=== PATIENT | female | born 2000 | race Caucasian/White ===

== ENCOUNTER 2023-10-12 10:00 | Outpatient (RCR) | payer OTHER, SELFPAY ==
[2023-10-05 13:31] VITALS: BP 112/71; RESP 16; TEMP 36.6; O2SAT 98
[2023-10-05] MEDS: ACETAMINOPHEN 325 MG TABLET 650 MG PO (13:42)
[2023-10-05] MEDS: diphenhydrAMINE HCl INJ 50 MG/ML VIAL 25 MG IV PUSH (13:43)
[2023-10-05] MEDS: IRON SUCROSE COMPLEX 200 MG in SODIUM CHLORIDE 0.9% IV 100 ML 440 MG IVPB (13:50)
[2023-10-05 14:22] VITALS: BMI 32.4
[2023-10-05 14:41] VITALS: BP 124/74
[2023-10-08 09:07] VITALS: BP 121/86; PULSE 105; TEMP 37.1; O2SAT 100
[2023-10-08] MEDS: diphenhydrAMINE HCl INJ 50 MG/ML VIAL 25 MG IV PUSH (09:23)
[2023-10-08] MEDS: ACETAMINOPHEN 325 MG TABLET 650 MG PO (09:23)
[2023-10-08] MEDS: IRON SUCROSE COMPLEX 200 MG in SODIUM CHLORIDE 0.9% IV 100 ML 440 MG IVPB (09:37)
[2023-10-08 10:30] VITALS: BP 111/75; PULSE 97
[2023-10-12 10:19] VITALS: BP 117/77; RESP 100; TEMP 36.9
[2023-10-12] MEDS: diphenhydrAMINE HCl INJ 50 MG/ML VIAL 25 MG IV PUSH (10:48)
[2023-10-12] MEDS: ACETAMINOPHEN 325 MG TABLET 650 MG PO (10:48)
[2023-10-12] MEDS: IRON SUCROSE COMPLEX 200 MG in SODIUM CHLORIDE 0.9% IV 100 ML 440 MG IVPB (11:04)
[2023-10-12 11:53] VITALS: BP 120/61
== END 2023-10-15 13:47 ==
LOC: AMCINF 10:00
PROVIDERS: Referring Provider Obstetrics & Gynecology; Visit Provider Internal Medicine Hematology & Oncology
DX: O99.013 Anemia complicating pregnancy, third trimester (principal); D64.9 Anemia, unspecified; Z3A.00 Weeks of gestation of pregnancy not specified
CPT/HCPCS: 96365; 96375; A9270; J1200; J1756

== ENCOUNTER 2024-11-01 14:52 | Outpatient (CLI) | payer OTHER, SELFPAY ==
--- NOTE | ~2024-11-01 | XR_ITS ---
3 VIEWS THORACIC SPINE Ordering provider: Hesham Meehan APRN History: . Hx of scoliosis, Pain worse past year since /labor . Comparison: None. FINDINGS: VERTEBRAL BODIES: Normal height and alignment. No visible fracture or subluxation. Mild dextroscoliosis. DISK SPACES: Multilevel degenerative disc disease in the upper thoracic area. SOFT TISSUES: Normal. IMPRESSION: No acute osseous abnormality of the thoracic spine. Dextroscoliosis. Multilevel degenerative disc disease. Reviewed, dictated and finalized at location A.
--- NOTE | ~2024-11-01 | XR_ITS ---
[id number] Ordering provider: Hesham Meehan APRN History: . Hx of scoliosis, Pain worse past year since /labor . Comparison: December 28, 2008 Technique: CT of the cervical spine was performed without contrast. Sagittal and coronal reformatted images were also obtained and reviewed. Automated exposure control and iterative reconstruction gabe hnique were employed. The dose-length product was mGy-cm. FINDINGS: VERTEBRAE: Minimal subluxation at the level of C2-C3. Otherwise, No subluxation or acute fracture. Th e occipital condyles are intact. DISC SPACES: Normal. PARASPINOUS SOFT TISSUES: Normal. IMPRESSION: Minimal anterolisthesis at the level of C2-C3. Otherwise, No acute osseous abnormality cervical spine . Reviewed, dictated and finalized at location A. IMPRESSION: Minimal anterolisthesis at the level of C2-C3. Otherwise, No acute osseous abno rmality cervical spine.
--- NOTE | ~2024-11-01 | XR_ITS ---
3 VIEWS LUMBAR SPINE Ordering provider: Hesham Meehan APRN History: . Hx of scoliosis, Pain worse past year since /labor . Comparison: None. FINDINGS: VERTEBRAL BODIES: No visible fracture or subluxation. 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 DISK SPACES: Narrowing of the disc L5-S1. SOFT TISSUES: Normal. IMPRESSION: No acute osseous abnormality lumbar spine. Degenerative disc disease at the level of L5-S1. Reviewed, dictated and finalized at location A.
--- OUTSIDE RECORDS SUMMARY | 2024-11-01 15:02 | XMS_ITS | Data Portability ---
Author Organization [facility] [place] Address [address] [address] [address] [place] [address] Assessment Encounter Date Assessment Date Assessment LastModified by Organization Details LastModified Time 09/15/2023 09/15/2023 Patient is _34__weeks . Discussed plan. Not available 09/15/2023 15:35:24 11/12/2023 11/12/2023 start slynd, discussed se risks and benefits, f/u 6 month wwe Not available 11/12/2023 14:20:23 Plan of Treatment Reminders Order Date Submit Date Provider Last Modified By Organization Details Last Modified Time Details Appointments None recorded . Lab CBC w/ auto diff 024 09/28/19 24 [facility] (Lab), [address], [place], [address], 4 03:11:08 iron + TIBC + ferritin , serum 024 09/28/19 24 [facility] (Lab), [address], [place], [address], 4 03:11:09 Referral None recorded . Procedures None recorded . Surgeries None recorded . Imaging US, obstetri c, follow-u p 024 09/01/19 24 [email or web address] [place], [address], [address], [place], [address], 4 16:52:45 Medication Orders Slynd 4 mg (28) tablet 024 11/12/[address] [id number], [address] [place], [place], [id number], 14:21:20 Patient TargetsNo targets recorded. Patient InstructionsNo instructions recorded. Reason for Referral None Reported. Results Created Date Observation Date Name Description Value Unit Range Abnormal Flag Note LastModifiedBy Organization Detail LastModifiedTime 08/04/1908/04/2023 HEMAT OCRIT (HCT) HCT 30.0 % (based on docume nted legal sex) 34.0-4 5.0 low Not Available [facility] (Lab) [address], [place], [address], 08/05/2023 01:48:57 08/04/19 24 08/04/2023 HEMOG LOBIN (HGB) HGB 10.2 g/dL (based on docume nted legal sex) 11.6-1 5.4 low Not Available [facility] (Lab) [address], [place], [address], 08/05/2023 01:48:57 08/04/19 24 08/04/2023 GTT - GESTA CAMRYN L SCREE N, ACOG OB glucose, 1 hour screen 94 mg/dL 70-135 Not Available [facility] (Lab) [address] [place], [address], 08/05/2023 01:48:58 08/04/1908/04/2023 HIV 1/2 ANTIG EN/AN TIBOD Y, REFLE X CONFI RMATI ON HIV antigen/anti body Nonrea ctive nonrea ctive HIV-1 antig en and HIV-1 /HIV- 2 antib odies were not detec anil. No labor atory evide nce of HIV infec tion. Not Available [facility] (Lab) [address], [place], [address], 08/05/2023 01:48:58 09/28/19 24 09/28/2023 CBC W/DIF F WBC 10.3 10'3/ uL 3.5-10 .5 Not Available [facility] (Lab) [address] , [place], [address], 09/29/2023 03:11:08 09/28/19 24 09/28/2023 CBC W/DIF F RBC 3.57 10'6/ uL (based on docume nted legal sex) 3.80-5 .20 low Not Available [facility] (Lab) [address], [place], [address], 09/29/2023 03:11:08 09/28/19 24 09/28/2023 CBC W/DIF F HGB 9.7 g/dL (based on docume nted legal sex) 11.6-1 5.4 low Not Available [facility] (Lab) [address], [place], [address], 09/29/2023 03:11:08 09/28/19 24 09/28/2023 CBC W/DIF F HCT 30.7 % (based on docume nted legal sex) 34.0-4 5.0 low Not Available [facility] (Lab) [address], [place], [address], 09/29/2023 03:11:08 09/28/19 24 09/28/2023 CBC W/DIF F MCV 86.0 fL 80.0-9 9.0 Not Available [facility] (Lab) [address] , [place], [address], 09/29/2023 03:11:08 09/28/19 24 09/28/2023 CBC W/DIF F MCH 27.2 pg 27.0-3 4.0 Not Available [facility] (Lab) [address], [place], [address], 09/29/2023 03:11:08 09/28/19 24 09/28/2023 CBC W/DIF F MCHC 31.6 g/dL 32.0-3 5.5 low Not Available [facility] (Lab) [address], [place], [address], 09/29/2023 03:11:08 09/28/19 24 09/28/2023 CBC W/DIF F RDW 14.5 % 11.0-1 5.0 Not Available [facility] (Lab) [address], [place], [address], 09/29/2023 03:11:08 09/28/19 24 09/28/2023 CBC W/DIF F plt 272 10'3/ uL 150-40 0 Not Available [facility] (Lab) [address], [place], [address], 09/29/2023 03:11:08 09/28/19 24 09/28/2023 CBC W/DIF F MPV 10.3 fL 8.8-12 .1 Not Available [facility] (Lab) [address], [place], [address], 09/29/2023 03:11:08 09/28/19 24 09/28/2023 CBC W/DIF F NRBC's 0.0 % 0.0 Not Available [facility] (Lab) [address], [place], [address], 09/29/2023 03:11:08 09/28/19 24 09/28/2023 CBC W/DIF F absolute NRBCs 0.0 10'3/ uL no refere nce range establ ished Not Available [facility] (Lab) [address], [place], [address], 09/29/2023 03:11:08 09/28/19 24 09/28/2023 CBC W/DIF F neutrophils 76.2 % 34.0-7 3.0 high Not Available [facility] (Lab) [address], [place], [address], 09/29/2023 03:11:08 09/28/19 24 09/28/2023 CBC W/DIF F lymphocytes 17.2 % 15.0-5 0.0 Not Available [facility] (Lab) [address], [place], [address], 09/29/2023 03:11:08 09/28/19 24 09/28/2023 CBC W/DIF F monocytes 4.6 % 1.0-15 .0 Not Available [facility] (Lab) [address], [place], [address], 09/29/2023 03:11:08 09/28/19 24 09/28/2023 CBC W/DIF F eosinophils 1.1 % 0.0-8. 0 Not Available [facility] (Lab) [address], [place], [address], 09/29/2023 03:11:08 09/28/19 24 09/28/2023 CBC W/DIF F basophils 0.2 % 0.0-2. 0 Not Available [facility] (Lab) [address], [place], [address], 09/29/2023 03:11:08 09/28/19 24 09/28/2023 CBC W/DIF F immature granulocytes 0.7 % no define d refere nce range Not Available [facility] (Lab) [address], [place], [address], 09/29/2023 03:11:08 09/28/19 24 09/28/2023 CBC W/DIF F absolute neutrophils 7.9 10'3/ uL 1.5-8. 0 Not Available [facility] (Lab) [address] [place], [address], 09/29/2023 03:11:08 09/28/19 24 09/28/2023 CBC W/DIF F absolute lymphocytes 1.8 10'3/ uL 1.0-4. 0 Not Available [facility] (Lab) [address] [place], [address], 09/29/2023 03:11:08 09/28/19 24 09/28/2023 CBC W/DIF F absolute monocytes 0.5 10'3/ uL 0.2-1. 0 Not Available [facility] (Lab) [address], [place], [address], 09/29/2023 03:11:08 09/28/19 24 09/28/2023 CBC W/DIF F absolute eosinophils 0.1 10'3/ uL 0.0-0. 6 Not Available [facility] (Lab) [address], [place], [address], 09/29/2023 03:11:08 09/28/19 24 09/28/2023 CBC W/DIF F absolute basophils 0.0 10'3/ uL 0.0-0. 3 Not Available [facility] (Lab) [address], [place], [address], 09/29/2023 03:11:08 09/28/19 24 09/28/2023 CBC W/DIF F absolute immature granulocytes 0.1 10'3/ uL 0.00-0 .10 024 1:44 AM: P indic ates parti al resul ts on a panel have been relea sed. Addit ional resul ts will follo w. 024 1:44 AM: This resul t has been final verif ied. No addit ional or costello ed resul ts are expec anil. Not Available [facility] (Lab) [address], [place], [address], 09/29/2023 03:11:08 09/28/19 24 09/28/2023 CM TIN / IRON / TRANS CM N / TIBC iron 33 ug/dL 40-170 low Not Available [facility] (Lab) [address], [place], [address], 09/29/2023 03:11:09 09/28/19 24 09/28/2023 CM TIN / IRON / TRANS CM N / TIBC transferrin 602 mg/dL 200-36 0 high Not Available [facility] (Lab) [address], [place], [address], 09/29/2023 03:11:09 09/28/19 24 09/28/2023 CM TIN / IRON / TRANS CM N / TIBC ferritin 8.6 NG/mL 8.0-25 2.0 Not Available [facility] (Lab) [address] [place], [address], 09/29/2023 03:11:09 09/28/19 24 09/28/2023 CM TIN / IRON / TRANS CM N / TIBC TIBC 843 ug/dL 250-45 0 high Not Available [facility] (Lab) [address], [place], [address], 09/29/2023 03:11:09 09/28/19 24 09/28/2023 CM TIN / IRON / TRANS CM N / TIBC iron saturation 4 % 20-55 low Not Available [facility] (Lab) [address] [place], [address], 09/29/2023 03:11:09 09/28/19 24 09/28/2023 CULTU RE: GROUP B STREP SCREE N result report SEE RESULT S BELOW Test: Cultu re: Group B Strep Scree n - Vagin al/Re ctal Speci men Sourc e: Vagin a/Rec louis Speci men Type: Vagin al/Re ctal Speci men Date: 2023 4:02 PM Resul t Date: 024 3:11 PM Resul t Statu s: Final resul t Abnor mal: No Resul ting Lab: [facility] [address] [facility] [address] Tel: CULTU RE ----- ----- ----- --- No Group B strep isola anil at 2 days (maya ctive broth enhan cemen t) Not Available [facility] (Lab) [address] [place], [address], 10/01/2023 16:14:33 09/01/19 24 09/01/2023 US, obste tric, follo w-up No observ ation record ed. [facility] [address], [place], [address], 09/01/2023 13:55:17 09/01/19 24 09/01/2023 US, obste tric, follo w-up No observ ation record ed. [facility] [address], [place], [address], 09/02/2023 15:01:30 Result Notes None recorded. Problems Name Problem SNOMED Code Status Onset Date Resolution Date Notes Provider Name and Address Organization Details Recorded Time Pregnanc y 05616931 Completed 202210/15/2023 [facility] 4 14:10:14 Dilatati on of renal pelvis 629885769 Completed 4.9mm at 24 weeks, repeat at 32 weeks-res olved [facility] 4 14:10:11 Anemia 085606595 Completed Anemia panel / IV iron infusion - referral faxed 09/28 [facility] 4 14:10:11 Problem Notes None recorded. Procedures Surgical History Date Name Laterality Status Provider Name and Address Organization Details Recorded Time 05/31/19 04 procedure on labia completed [facility] 02/22/2023 15:55:05 05/31/19 03 Tonsillectomy completed [facility] 02/22/2023 15:54:22 Imaging Results None recorded. Procedure Notes None recorded. Medical Equipment None Reported. Allergies No known drug allergies Medications Name Sig Start Date Stop Date Status Note LastModified by Organization Details LastModified Time clindamycin HCl 300 mg capsule TAKE 1 CAPSULE BY MOUTH EVERY 8 HOURS 04/12 completed Not Available Not Available Not Available triamcinolo ne acetonide 0.5 % topical cream APPLY TOPICALLY TO THE AFFECTED AREA TWICE DAILY FOR 5 DAYS 04/12 completed Not Available Not Available Not Available cetirizine 10 mg tablet TAKE 1 TABLET BY MOUTH DAILY NEEDED 11/11 completed Not Available Not Available Not Available ondansetron HCl 4 mg tablet TAKE 1 TABLET BY MOUTH EVERY 4 TO 6 HOURS 11/11 completed Not Available Not Available Not Available hydroxyzine pamoate 50 mg capsule TAKE 1 CAPSULE BY MOUTH EVERY NIGHT AT BEDTIME NEEDED 04/12 completed Not Available Not Available Not Available dextroamphe tamine-amph etamine 30 mg tablet TAKE 1 TABLET BY MOUTH EVERY MORNING 06/08 completed Not Available Not Available Not Available benzonatate 100 mg capsule TAKE 1 CAPSULE BY MOUTH EVERY 8 HOURS NEEDED 04/12 completed Not Available Not Available Not Available epinephrine 0.3 mg/0.3 mL injection, auto-inject or active Not Available Not Available Not Available ibuprofen 600 mg tablet TAKE 1 TABLET BY MOUTH EVERY 6 HOURS NEEDED FOR CRAMPING 11/11 completed Not Available Not Available Not Available escitalopra m 10 mg tablet TAKE 1 TABLET BY MOUTH EVERY DAY 04/12 completed Not Available Not Available Not Available active Not Available Not Avai lable Not Available Slynd 4 mg (28) tablet Take 1 tablet every day by oral route. active Not Available Not Available No t Available Vitals Date Recorded Body height Body mass index (BMI) Body weight Systolic blood pressure Diastolic blood pressure Provider Name and Address Organization Details Last Updated DateTime 09/01/2023 161.29 cm 30.5 kg/m2 60902.66 475 g 129 mm[Hg] 82 mm[Hg] Tracie De La Garza [facility] 4 13:07:24 Date Recorded Body height Body mass index (BMI) Body weight Systolic blood pressure Diastolic blood pressure Provider Name and Address Organization Details Last Updated DateTime 09/15/2023 161.29 cm 30.9 kg/m2 46122.84 949 g 129 mm[Hg] 84 mm[Hg] Tracie De La Garza [facility] 15:25:39 Date Recorded Body weight Provider Name an d Address Organization Details Last Updated DateTime 09/28/2023 [id number] Emily Lewis [address], [place], [address], [facility] 09/28/2023 14:49:52 Date Recorded Body height Body mass index (BMI) Systolic blood pressure Diastolic blood pressure Provider Name and Address Organization Details Last Updated DateTime 09/28/2023 161.29 cm 32 kg/m2 132 mm[Hg] 79 mm[Hg] [facility] 09/28/2023 14:27:14 Date Recorded Body weight Provider Name an d Address Organization Details Last Updated DateTime 10/12/2023 [id number] Emily Lewis [address], [place], [address], [facility] 10/15/2023 13:50:59 Date Recorded Body height Body mass index (BMI) Systolic blood pressure Diastolic blood pressure Provider Name and Address Organization Details Last Updated DateTime 10/12/2023 161.29 cm 32.2 kg/m2 126 mm[Hg] 84 mm[Hg] [facility] 10/12/2023 15:42:32 Date Recorded Body height Body mass index (BMI) Body weight Systolic blood pressure Diastolic blood pressure Provider Name and Address Organization Details Last Updated DateTime 11/12/2023 161.29 cm 26.3 kg/m2 02860.45 g 117 mm[Hg] 81 mm[Hg] Tracie De La Garza [facility] 14:06:42 Social History Question Answer Notes LastModified by Organizat ion Details LastModified Time Tobacco Smoking Status Never Smoker Claudia Luis sara, [facility] 06/08/2023 13:51:01 If You Are , What Was Your Level Of Alcohol Consumption Prior To ? None Information not available 06/08/2023 Are You Blind Or Do You Have Difficulty Seeing? No Information n ot available 02/22/2023 What Is Your Level Of Caffeine Consumption? Occasional Information not available 02/22/2023 In The 14 Days Before Symptom Onset, Have You Had Close Contact With A Laboratory-confirm ed COVID-19 While That Case Was Ill? No Information n ot available 02/22/2023 In The 14 Days Before Symptom Onset, Have You Had Close Contact With A Person Who Is Under Investigation For COVID-19 While That Person Was Ill? No Information not available 02/22/2023 Have You Been To An Area Known To Be High Risk For COVID-19? No Information not available 02/22/2023 Are You Deaf Or Do You Have Serious Difficulty Hearing? No Information not available 02/22/2023 What Type Of Diet Are You Following? REGULAR Information n ot available 02/22/2023 What Is The Highest Grade Or Level Of School You Have Completed Or The Highest Degree You Have Received? [id number] Information not available 02/22/2023 Are There Any Guns Present In Your Home? No Information not available 02/22/2023 Do You Use Protection During Sex? Usually Information not available 02/22/2023 Do You Use Your Seat Belt Or Car Seat Routinely? Yes Information not available 02/22/2023 Do You Have Smoke And Carbon Monoxide Detectors In Your Home? Yes Information not available 02/22/2023 How Much Tobacco Do You Smoke? No Information not available 02/22/2023 Do You Use Sunscreen Routinely? Yes Information not available 02/22/2023 Have You Used IV Drugs? No Information not available 02/22/2023 Do You Have Difficulty Walking Or Climbing Stairs? No [email or web address] Information not available 09/01/2023 Sex: Unknown Functional Status Question Answer Note LastModified by Organizat ion Details LastModified Time Do you use any illicit or recreational drugs? No Information not available 02/22/2023 Do you or have you ever used any other forms of tobacco or nicotine? No [email or web address] Information not available 06/08/2023 What is your level of alcohol consumption? None Information not available 02/22/2023 Are you able to walk? YESWOREST Information not available 02/22/2023 Are you able to care for yourself? 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 No [email or web address] Information not available 09/01/2023 What is your exercise level? Heavy Information not available 02/22/2023 Mental Status Question Answer Note LastModified by Organization D etails LastModified Time Do you feel stressed (tense, restless, nervous, or anxious, or unable to sleep at night)? [id number] Information not available 02/22/2023 Family History Relationship Description Onset Age of this Age Resolved Age Notes LastModified by Organization Details LastModified Time Father No current problems or disability [email or web address] Not available 02/22 15:47:15 Mother No current problems or disability [email or web address] Not available 02/22 15:47:15 Medical History Condition Response Allergies (Food, seasonal, environmental ) N Other N Blood Transfusion N Drug/Latex Allergies/Reactions N Breast Cancer N Dermatologic Disorders N Lung Disease N Defects or Inherited Disease N Breast Problem N Gestational Diabetes N Hematologic disorders N Anesthesia Complications N History of STI N Deep Vein Thrombosis N Polycystic ovary syndrome N Anxiety Disorder N Autoimmune disease N Arthritis N Infertility N Polyps N Acid Reflux (GERD) N History of abnormal pap N Cancer N Stroke N Varicosities N Neurologic/Epilepsy N Endometriosis N High Cholesterol N Headaches N Fibromyalgia N Kidney Disease N Heart Problems N Kidney or Bladder Problems N Thyroid Problems N GI Problems N Eating Disorder N Anemia N Art (IVF or FET) N Psychiatric Illness N Ovarian Cancer N Diabetes N Pulmonary (TB, Asthma) N Hepatitis/Liver Disease N No Past Medical History Y Eczema N Urinary Tract Infection N Abuse/Domestic Violence N Asthma N Trauma/Violence N Depression/ depression N Heart Disease N Pre-Eclampsia N Hypertension N Osteoporosis N Thrombophilias N Gynecological History Statement/Question Response Date of Last Mammogram Date of LMP 12/17/2022 N Was last menstrual period normal Y STIs/STDs N HPV Vaccine Y Duration of Flow (days) 6 Current Control Method None Sexually Active? Y Date of DEXA bone scan Age of first menstrual cycle 15 Date of Last Pap Smear Sexual Problems? N Desired Control Method None LMP Approximate N Obstetrics History GPAL:G 1 P 1 0 0 1 Type Value Full Term 1 Living 1 Total 1 Past Encounters Encounter ID Performer Location Encounter Start Date Encounter Closed Date Diagnosis/Indication Diagnosis SNOMED-CT Code Diagnosis ICD10 Code Diagnosis Note [id number] MD [place] [address] [address] 02/22/2023 15:02:05 02/22/2023 15:41:10 Uterine size for dates discrepancy 728983048 O26.841 Z3A.01 [id number] JENNIFER PINA MD [place] [address],[place] [address] 02/22/2023 15:02:49 02/22/2023 16:29:21 test positive 862764668 Z32.01 1. Exam today within normal limits.2. Will repeat U/S in 2 weeks to confirm gestationa l age and verify viability. 3. ACOG guidelines and plan of care for reviewed with patient. All questions answered.7 . Return to office in 6 weeks for continued OB care (2 weeks for repeat ultrasound )8. Will need new OB labs at next visit.9. Genetic screening: undecided, will discuss at next visit [id number] JENNIFER PINA MD [place] [address],[place] [address] 03/11/2023 15:17:29 03/11/2023 16:24:42 screening 967990102 Z36.87 [id number] MD Ilia HERNANDE[facility] [address],[place] [address] 04/08/2023 10:59:15 04/08/2023 12:04:21 screening 473640538 Z36.82 Z3A.12 [id number] MD Ilia HERNANDE[facility] [address] [address] 04/12/2023 12:18:17 04/12/2023 13:42:33 Routine care 835540089 Z34.01 [id number] JENNIFER PINA MD [place] [address],[place] [address] 05/10/2023 11:57:39 05/20/2023 10:18:29 Routine care 450115085 Z34.01 [id number] Chito Levin MD [place] [address],[place] [address] 06/08/2023 13:50:52 06/08/2023 14:55:26 screening for malformation 583782581 Z36.3 Z3A.20 [id number] JENNIFER PINA MD [place] [address],[place] [address] 06/08/2023 13:51:15 06/08/2023 15:17:02 Routine care 517947454 Z34.01 [id number] Chito Levin MD [place] [address],[place] [address] 07/07/2023 14:13:55 07/07/2023 14:59:35 Suspected abnormality affecting management of mother 9063957291 [id number] O35.8XX0 Z36.2 Z3A.24 [id number] MD Ilia HERNANDE[place] [address] [address] 07/07/2023 14:15:24 07/07/2023 15:25:10 Dilatation of renal pelvis 373551708 O36.8999 Gestation period, 24 weeks 823835608 Z3A.24 [id number] JENNIFER PINA MD [place] [address] [address] 08/04/2023 15:50:03 08/04/2023 17:01:15 Dilatation of renal pelvis 791151105 O36.8999 Gestation period, 28 weeks 41935093 Z3A.28 [id number] MD Ilia HERNAN[place] [address],[place] [address] 08/17/2023 11:47:11 08/19/2023 13:36:27 Dilatation of renal pelvis 273269678 O36.8999 Gestation period, 30 weeks 38519691 Z3A.30 [id number] Chito Levin MD [place] [address],[place] [address] 09/01/2023 12:28:46 09/01/2023 13:30:02 condition affecting obstetrical care of mother 529155701 O35.8XX0 Z3A.32 [id number] Shasta Chauhan [facility] [address],[place] [address] 09/01/2023 12:29:12 09/01/2023 13:32:51 Routine care 846124070 Z34.83 [id number] [facility] [address],[place] [address] 09/15/2023 15:12:05 09/15/2023 15:37:20 Routine care 532244005 Z34.83 [id number] JENNIFER PINA MD [place] [address],[place] [address] 09/28/2023 14:11:38 09/28/2023 15:03:55 Anemia of 51501865 O99.019 Gestation period, 36 weeks 87590716 Z3A.36 [id number] JENNIFER PINA MD [place] [address],[place] [address] 10/12/2023 15:19:54 10/16/2023 02:21:03 Anemia of 24612039 O99.019 Gestation period, 38 weeks 14547125 Z3A.38 [id number] Shasta Chauhan [facility] [address],[place] [address] 11/12/2023 13:59:35 11/12/2023 14:22:14 care 856241738 Z39.2 Health Concerns Section Related Observation LastModified by Organization Detai ls LastModified Time None Recorded Concern Status LastModified by Organization Details LastModified Time None Recorded Advance Directives Directive None Recorded Payers Encounter Date Sequence Insurance Name Policy Number Policy Ferguson Covered Member ID Ferguson Member ID Guarantor Name 09/01/2023 1 [facility] ON OR AFTER 11/28/20 (MEDICAID REPLACEMENT - HMO) Suki Gongora [id number] Suki Gongora 09/15/2023 1 [facility] ON OR AFTER 11/28/20 (MEDICAID REPLACEMENT - HMO) Suki Fransisca [id number] Suki Fransisca 09/28/2023 1 [facility] ON OR AFTER 11/28/20 (MEDICAID REPLACEMENT - HMO) Suki Fransisca [id number] Suki Hammadjanes 10/12/2023 1 [facility] ON OR AFTER 11/28/20 (MEDICAID REPLACEMENT - HMO) Suki Gongora [id number] Suki Fransisca 11/12/2023 1 [facility] ON OR AFTER 11/28/20 (MEDICAID REPLACEMENT - HMO) Suki Gongora [id number] Suki Gongora Notes Date Note Type Note Provider Name and Address Organization Details Recorded Time 11/12/2023 text/html VisitReported bypatient.Quality:N Context:complicatio ns of : none; complications of labor: arrest of descent; complications: none; feeding choice: breast; good support from partner/family; resumed menstrual bleeding no; kiwi vacuum delivery Associated Symptoms:no abnormal bleeding; no vaginal discharge; no pelvic pain; laceration well healed; no constipation; no fecal incontinence; no dysuria; no urinary incontinence; no fever; no problems; no mastitis; normal mood Contraception Plan:progesterone only pillNotes:doing great!! Tracie De La Garza [facility] 11/13/2023 12:29:47 OBGyn Episode Ob Episode Information Episode Created Date Number of Fetuses Patient Bloodtype Patient rh Status Prepregnancy Weight lbs Domestic Partner Domestic Partner Phone Father Name Clothing Busheler Status 04/12/20 23 1 A Positive 134.6 CLOSED Fetus Data First Name Last Name Admitted to NICU Weight (g) Sex Living Outcome Pediatric Complications Fetus ID Race Codes Race Delivery Type [id number] [id number] F true Full Term [id number] Vacuum Assisted Vaginal Delivery Problems Problem Notes Problem Name Start Date End Date Resolution Snomed Code Not e Dilatation of renal pelvis [id number] 4.9mm at 24 wee ks, repeat at 32 weeks-resolved Anemia [id number] Anemia gallego el / IV iron infusion - referral faxed 09/28 Aleksandr Calculation Initial Aleksandr Date Initial Exam Date Initial Exam Provider Initial Ultrasound Date Last Menstrual Period Date Ultra Sound Weeks Gestation 10/23/2023 04/12/2023 03/11/2023 12/17/2022 7 Eighteen To Twenty Week Aleksandr Update Ultra Sound Date Fundal Height At Umbil Quickening Date Ultra Sound Latest Weeks Gestation Final Aleksandr Confirmed By Final Aleksandr Confirmed Date Final Aleksandr Date Ultra Sound Latest Days Gestation 0 [email or web address] 04/12/2023 10/23/19 24 0 Pre-zi Flowsheet Flowsheet Date 04/12/2023 Potter Score Blood Edema Fundus Height Fundus Units Glucose Ketones Leukocytes Nitrite Labor Signs Protein Cervic Dilation Cervic Effacement Cervic Station 12 Type Weight in lbs Pre/Post Dialysis Refused Weight 141.694267012132 BP Diastolic BP Location Tested BP Systolic BP Type 75 124 Fetus Heart Rate Present A 140 Fetus Movement Comments Presents to establish prenat al care. uncomplicated thus far. Nausea improved with zofran. Denies cramping or bleeding. Declined NIPT. Discussed routine care. PMH/PSH noncontributory. Will begin routine care. Flowsheet Date 05/10/2023 Potter Score Blood Edema Fundus Height Fundus Units Glucose Ketones Leukocytes Nitrite Labor Signs Protein Cervic Dilation Cervic Effacement Cervic Station 16 Type Weight in lbs Pre/Post Dialysis Refused Weight 144.396813541470 BP Diastolic BP Location Tested BP Systolic BP Type 73 122 Fetus Heart Rate Present A 140 Fetus Movement Comments Doing well, no issues since last visit. no cramping, bleeding, LOF. No movement yet. Anatomy next visit. Routine cares. Flowsheet Date 06/08/2023 Potter Score Blood Edema Fundus Height Fundus Units Glucose Ketones Leukocytes Nitrite Labor Signs Protein Cervic Dilation Cervic Effacement Cervic Station Type Weight in lbs Pre/Post Dialysis Refused BP Diastolic BP Location Tested BP Systolic BP Type Fetus Heart Rate Present Fetus Movement Comments Flowsheet Date 06/08/2023 Potter Score Blood Edema Fundus Height Fundus Units Glucose Ketones Leukocytes Nitrite Labor Signs Protein Cervic Dilation Cervic Effacement Cervic Station Type Weight in lbs Pre/Post Dialysis Refused Weight 150.022320142411 BP Diastolic BP Location Tested BP Systolic BP Type 73 115 Fetus Heart Rate Present A 137 Fetus Movement A Yes Comments Doing well, no cramping, ble eding. Good movement. Anatomy complete and normal today, EFW 47%. Girl! Very mild unilateral pyelectasis, will repeat US in 4 weeks to reevaluate. Flowsheet Date 07/07/2023 Potter Score Blood Edema Fundus Height Fundus Units Glucose Ketones Leukocytes Nitrite Labor Signs Protein Cervic Dilation Cervic Effacement Cervic Station Type Weight in lbs Pre/Post Dialysis Refused BP Diastolic BP Location Tested BP Systolic BP Type Fetus Heart Rate Present Fetus Movement Comments Flowsheet Date 07/07/2023 Potter Score Blood Edema Fundus Height Fundus Units Glucose Ketones Leukocytes Nitrite Labor Signs Protein Cervic Dilation Cervic Effacement Cervic Station Type Weight in lbs Pre/Post Dialysis Refused Weight 159.899965289402 BP Diastolic BP Location Tested BP Systolic BP Type 76 128 Fetus Heart Rate Present A 141 Fetus Movement A Yes Comments Doing well, good movem ent. No cramping or bleeding. Growth US today 49%, R pyelectasis stable. Will repeat at 32 weeks. RTC 4 weeks for GCT and labs. Flowsheet Date 08/04/2023 Potter Score Blood Edema Fundus Height Fundus Units Glucose Ketones Leukocytes Nitrite Labor Signs Protein Cervic Dilation Cervic Effacement Cervic Station Type Weight in lbs Pre/Post Dialysis Refused Weight 168.804501895171 BP Diastolic BP Location Tested BP Systolic BP Type 78 129 Fetus Heart Rate Present A 135 Fetus Movement A Yes Comments Doing well, no ctx LOF VB. B macie active. No problems since last visit. Discussed Tdap vaccine. GCT and labs today. RTC 2 weeks. Flowsheet Date 08/17/2023 Potter Score Blood Edema Fundus Height Fundus Units Glucose Ketones Leukocytes Nitrite Labor Signs Protein Cervic Dilation Cervic Effacement Cervic Station Type Weight in lbs Pre/Post Dialysis Refused Weight 168.202051407932 BP Diastolic BP Location Tested BP Systolic BP Type 76 117 Fetus Heart Rate Present A 145 Fetus Movement A Yes Comments Doing well, good movem ent. No cramping or bleeding. Recieved Tdap. Changed prenatals to formula with Fe. Will recheck H/h at 34 weeks. Repeat US next visit for renal pyelectasis. RTC 2 weeks. Flowsheet Date 09/01/2023 Potter Score Blood Edema Fundus Height Fundus Units Glucose Ketones Leukocytes Nitrite Labor Signs Protein Cervic Dilation Cervic Effacement Cervic Station Type Weight in lbs Pre/Post Dialysis Refused BP Diastolic BP Location Tested BP Systolic BP Type Fetus Heart Rate Present Fetus Movement Comments Flowsheet Date 09/01/2023 Potter Score Blood Edema Fundus Height Fundus Units Glucose Ketones Leukocytes Nitrite Labor Signs Protein Cervic Dilation Cervic Effacement Cervic Station neg trace none trace Type Weight in lbs Pre/Post Dialysis Refused Weight 175.462811896395 BP Diastolic BP Location Tested BP Systolic BP Type 82 129 Fetus Heart Rate Present Fetus Movement A Yes Comments patient states that having s ome swelling. doing well, reviewed us, reviewed precautions and education, call for preadmit, f/u in 2 weeks Flowsheet Date 09/15/2023 Potter Score Blood Edema Fundus Height Fundus Units Glucose Ketones Leukocytes Nitrite Labor Signs Protein Cervic Dilation Cervic Effacement Cervic Station neg none 33 none trace Type Weight in lbs Pre/Post Dialysis Refused Weight 177.111094449856 BP Diastolic BP Location Tested BP Systolic BP Type 84 129 Fetus Heart Rate Present A 139 Present Fetus Movement A Yes Comments Patient is having some swell ing. tdap done, preadmit scheduled, +FM, reviewed precautions, education, plan gbs at next visit, f/u 2 weeks Flowsheet Date 09/28/2023 Potter Score Blood Edema Fundus Height Fundus Units Glucose Ketones Leukocytes Nitrite Labor Signs Protein Cervic Dilation Cervic Effacement Cervic Station Type Weight in lbs Pre/Post Dialysis Refused Weight 183.970941920547 BP Diastolic BP Location Tested BP Systolic BP Type 79 132 Fetus Heart Rate Present A 120 Fetus Movement A Yes Comments Some BH contractions. No LOF or VB. Good movement. Desires spontaneous labor. Will recheck H/H and Fe panel today. GBS collected, declined SVE. RTC 1 week. Flowsheet Date 10/12/2023 Potter Score Blood Edema Fundus Height Fundus Units Glucose Ketones Leukocytes Nitrite Labor Signs Protein Cervic Dilation Cervic Effacement Cervic Station Type Weight in lbs Pre/Post Dialysis Refused Weight 184.327542730653 BP Diastolic BP Location Tested BP Systolic BP Type 84 126 Fetus Heart Rate Present A 130 Fetus Movement A Yes Comments Doing well, no issues. Baby active. Hgb 9.7, started IV Fe infusions and is tolerating well. Labor precautions reviewed. RTC 1 week. Menstrual History Last Menstrual Date Menses Monthly On Bcp Conception Prior Menses Frequency Hcg Plus Date Menarche Onset Age 0712/17/2022 Genetic Screening And Infection History Question Response Note Mental Retardation/Autism false Patient's Age Will Be 35 Years Or Older At Estim ated Date of Delivery false Thalassemia (Central African, Italian, Mediterranean, Or Background): MCV < 80 false Neural Tube Defect (Meningomyelocele, Spina Bifi da, Or Anencephaly) false Congenital Heart Defect false Down Syndrome false Jeff-Sachs (eg, Anabaptism, Cajun, Czech-Crozier) f alse Charo Disease false Sickle Cell Disease Or Trait () false Hemophilia Or Other Blood Disorders false Muscular Dystrophy false Cystic Fibrosis false Jermaine's Chorea false Intellectual Disability/Autism false If Yes, Was Person Tested For Fragile X? false Other Inherited Genetic Or Chromosomal Disorder false Maternal Metabolic Disorder (eg, Type 1 Diabetes , PKU) false Patient Or Baby's Father Had A Child With Defects Not Listed Above false Recurrent Loss, Or A Stillbirth false Medications (including Suppl ements, Vitamins, Herbs, OTC Drugs), Illicit/Recreational Drugs, Alcohol false If Yes, Agent(s) And Strength/Dosage false Any Other Genetic History false Live With Someone With TB Or Exposed To TB false Patient Or Partner Has History Of Genital Herpes false Rash Or Viral Illness Since Last Menstrual Perio d false History Of STD, Gonorrhea, Chlamydia, HPV, Syphi lis false Other Infection History false History of HIV false History of Hepatitis false Prior GBS-infected child false Hemoglobinopathy Or Carrier false Other Structural Defect false Recent Travel History Outside of Country false Delivery Information Delivery Date Delivery Type Labor Anesthesia Weeks Gestation Incision Type Labor Labor Length Hrs Delivered By Post Complications Tubal Sterilization Discharge Date Comments [facility] idural 38.5 false Shasta Chauhan CNM Anemia,Di latation of renal pelvis Discharge Information Feeding Method Contraceptive Method Maternal HG B and HCT Levels
--- OUTSIDE RECORDS SUMMARY | 2024-11-01 15:02 | XMS_ITS | Clinical Summary ---
Author Organization [facility] Address [address] 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 This disclosure is being madepursuant to the Care Everywhere program and may not contain all information available regarding this patient. Last updated 18.[facility] Allergies No known active allergies Medications * Be aware that medications may not be up to date on this document. Alwaysverify current medications with the patient. cloNIDine (CATAPRES) 0.3 MG tablet Take 0.3 mg by mouth 2 times daily Active amphetamine-dex troamphetamine (ADDERALL) 30 MG tablet Take 30 mg by mouth every morning Active Active Problems Problem Noted Date Diagnosed Date Closed nondisplaced fracture of middle phalanx of right ring finger 01/30/2016 Social History Tobacco Use Types Packs/Day Years Used Date Smoking Tobacco: Never Assessed Comments Unknown Sex and Gender Information Value Date Recorded Sex Assigned at Not on file Legal Sex Female 2:53 PM CDT Gender Identity Not on file Sexual Orientation Not on file Last Filed Vital Signs Vital Sign Reading Time Taken Comments Blood Pressure - - Pulse - - Temperature - - Respiratory Rate - - Oxygen Saturation - - Inhaled Oxygen Concentration - - Weight 50.2 kg (110 lb 10.7 oz) 01/30/2016 1:50 PM CDT Height 159.2 cm (5' 2.68) 01/30/2016 1:50 PM CD T Body Mass Index 19.81 01/30/2016 1:50 PM CDT Plan of Treatment Health Maintenance Due Date Last Done Comments HIV SCREENING 2017 HPV VACCINE (1 - 3-dose series) 2017 CHLAMYDIA/GONORRHEA SCREENING 2018 MENINGOCOCCAL (Group B) VACC INE SHARED DECISION-MAKING (1 of 2 - Standard) 2018 HEPATITIS C SCREENING 06/25/2020 DTAP/TDAP/TD VACCINES (1 - Tdap) 2021 HEPATITIS B VACCINE (1 of 3 - 19+ 3-dose series) 2021 COVID-19 VACCINE (1 - 2023-2 5 season) 2024 DEPRESSION SCREENING 05/31/2024 INFLUENZA VACCINE (Season Ended) 2025 ZOSTER VACCINE (1 of 2) 2052 HIB VACCINE Aged Out No longer eligi ble based on patient's age to complete this topic MENINGOCOCCAL GROUPS A/C/Y/W VACCINE Aged Out No longer eligible b ased on patient's age to complete this topic PNEUMOCOCCAL VACCINE Aged Out No long er eligible based on patient's age to complete this topic Insurance MEDICAID - [place]
== END 2024-11-01 14:53 | disposition home or self-care (01) ==
PROVIDERS: PCP Nurse Practitioner Family; Visit Provider Nurse Practitioner Family
DX: M54.9 Dorsalgia, unspecified (principal); M51.379 Other intervertebral disc degeneration, lumbosacral region without mention of lumbar back pain or lower extremity pain; M43.12 Spondylolisthesis, cervical region; M51.34 Other intervertebral disc degeneration, thoracic region
CPT/HCPCS: 72040; 72072; 72100